=== PATIENT | male | born 1975 | race Caucasian/White ===

== ENCOUNTER 2021-02-22 15:38 | Outpatient (REF) | payer MEDICARE, MEDICAID, SELFPAY ==
--- NOTE | ~2021-02-22 | US_ITS ---
EXAMINATION: US SCROTUM CLINICAL INFORMATION: Left testicular pain. COMPARISON: Ultrasound scrotum 01/25/2006, report only. TECHNIQUE: A sonogram of the scrotum was performed assessing zamorano-scale appearance and color Doppler flow. Spectral Doppler analysis of the arterial and venous flow were performed in the testes bilaterally. FINDINGS: RIGHT: Right testicle measures 4.1 x 1.7 x 2.5 cm, volume 9.1 mL. There are small calcifications seen in the right testicle. Spectral Doppler analysis of the arterial and venous flow is normal in the right testis. Right epididymal head is enlarged.. There is a 1.9 x 0.7 x 0.6 cm right epididymal head cyst. No right hydrocele or varicocele is seen. Right epididymal Doppler flow is normal. There is a small simple cyst in the anterior scrotum superior to the right testicle that measures 3 x 2 x 3 mm. LEFT: Left testicle measures 3.7 x 1.5 x 2.3 cm, volume 6.7 mL. There are small calcifications in the left testicle. Spectral Doppler analysis of the arterial and venous flow is normal in the left testis. Left epididymal head is normal in size. No left hydrocele is seen. Left epididymal Doppler flow is normal. There is a left varicocele. US/US scrotum IMPRESSION: Bilateral testicular microlithiasis. This is described in 2006 report. No focal testicular lesion seen. 1.9 x 0.7 x 0.6 cm right epididymal head cyst. Small left varicocele.
== END 2021-02-22 15:39 | disposition home or self-care (01) ==
LOC: HO.US 15:38
PROVIDERS: PCP Nurse Practitioner Family; Visit Provider Nurse Practitioner Family
DX: N50.812 Left testicular pain (principal)
CPT/HCPCS: 76870

== ENCOUNTER → 2021-03-01 10:08 | Outpatient (BNVA) | payer MEDICARE, MEDICAID, SELFPAY | PROVIDERS: PCP Nurse Practitioner Family; Visit Provider Urology | DX: I86.1 Scrotal varices (principal); N47.1 Phimosis | CPT/HCPCS: 99202 ==

== ENCOUNTER 2021-04-08 09:44 | Day surgery (SDC) | payer MEDICARE, MEDICAID, SELFPAY ==
[2021-04-01 15:18] VITALS: BMI 30.7
--- NOTE | 2021-04-05 09:44 | HO.ANESPROP2 ---
Documented by User: Estela Velarde NP 04/05/21 09:52 HPI - Anesthesia Eval Consult details Narrative: 45yo M for Left Variocelectomy, Circumcision Suboxone 8mg TID (24mg total daily). Plan to wean for surgery: 16mg 04/05, 8mg 04/06, 8mg 04/07 PMFSH Active Problems Active Problems: All Active Problems (Updated 03/01/21 @ 17:46 by Miguel Hernandez MD) Varicocele (Acute) Phimosis (Acute) Past Medical History Medical History History of intravenous drug abuse Smoker Family History Family History Father Medical history unknown Mother Medical history unknown Surgical History Surgical History Hx of foot surgery Hx of hernia repair Social History Social History Are you a primary direct care supervisor to a significant other at home: No Do you presently have visiting nurse or other home services: No Alcohol intake: current Alcohol intake frequency: a few times a month Patient Tobacco Use Status: Current everyday Tobacco user Tobacco use type: Cigarette Cigarette Packs Per Day: 1 Cigarettes Per Day: 20.0 Years Smoked: 25 Smoked in Last 30 Days: Yes Patient Interested in Nicotine Replacement: No Use of substances other than those prescribed or required for medical reasons: No Substance Use Type Other:: On Suboxone Have you been hit, kicked, punched, or otherwise hurt by someone within the past year? If so, by whom?: No Are you DNR?: No Advance Directives: No Advance Directives Information Provided: No Advance Directives on File: No Recently lost weight without trying: No Eating poorly because of decreased appetite: No Nutrition Risks: No Nutritional Risk Meds Allergies Allergy/AdvReac Type Severity Reaction Status Date / Time No Known Allergies Allergy Verified 04/01/21 14:43 [No Known Allergies*] Home Medications Medication Instructions Recorded Confirmed Last Taken Type buprenorphine 8 mg-naloxone 2 mg 30 mg SUBLINGUAL DAILY 12/27/20 04/01/21 Unknown History sublingual film bupropion HCl 300 mg 24 hr tablet, 300 mg PO QAM 12/27/20 04/01/21 Unknown History extended release lorazepam 1 mg tablet 1 mg PO BID 12/27/20 04/01/21 Unknown History trazodone 100 mg tablet 150 mg PO BEDTIME 12/27/20 04/01/21 Unknown History Exam Exam Date and Time: April 05, 2021 09 Height,Weight and Vital Signs: Height 5 ft 8 in Weight 91.626 kg Assessment and Plan Assessment Anesthesia Assessment: Chart Reviewed Documented by User: Alannah Back MD 04/08/21 10:43 [facility] Past Medical History Medical History History of intravenous drug abuse Smoker Family History Family History Father Medical history unknown Mother Medical history unknown Surgical History Surgical History Hx of foot surgery Hx of hernia repair History of Problems with Anesthesia: No Social History Social History Are you a primary direct care supervisor to a significant other at home: No Do you presently have visiting nurse or other home services: No Alcohol intake: current Alcohol intake frequency: a few times a month Patient Tobacco Use Status: Current everyday Tobacco user Tobacco use type: Cigarette Cigarette Packs Per Day: 1 Cigarettes Per Day: 20.0 Years Smoked: 25 Smoked in Last 30 Days: Yes Patient Interested in Nicotine Replacement: No Use of substances other than those prescribed or required for medical reasons: No Substance Use Type Other:: On Suboxone Have you been hit, kicked, punched, or otherwise hurt by someone within the past year? If so, by whom?: No Are you DNR?: No Advance Directives: No Advance Directives Information Provided: No Advance Directives on File: No Recently lost weight without trying: No Eating poorly because of decreased appetite: No Nutrition Risks: No Nutritional Risk Meds Allergies Allergy/AdvReac Type Severity Reaction Status Date / Time No Known Allergies Allergy Verified 04/01/21 14:43 [No Known Allergies*] Home Medications Medication Instructions Recorded Confirmed Last Taken Type buprenorphine 8 mg-naloxone 2 mg 30 mg SUBLINGUAL DAILY 12/27/20 04/01/21 Unknown History sublingual film bupropion HCl 300 mg 24 hr tablet, 300 mg PO QAM 12/27/20 04/01/21 Unknown History extended release lorazepam 1 mg tablet 1 mg PO BID 12/27/20 04/01/21 Unknown History trazodone 100 mg tablet 150 mg PO BEDTIME 12/27/20 04/01/21 Unknown History Exam Airway Mallampati Class: II TM Dist: >3cm Neck ROM: Full Loose/Missing/Broken Teeth: No Heart: RRR Lungs: CTA Assessment and Plan Assessment Anesthesia Assessment: Anesthesia Plan Discussed Final Anesthetic Review History of Problems with Anesthesia: No NPO: Yes ASA Class: II Final Preanesthetic Review: Meds/Allgs Chart Reviewed, Consent Obtained/Reviewed and Anes Risks/Benef Reviewed Patient Risk: Low Procedure Risk: Low Anesthetic Plan Anesthetic Plan: GA Disposition: Standard PACU
[2021-04-08] VITALS (9 sets, daily range): BP systolic 110–133; BP diastolic 45–84; PULSE 57–84; RESP 16–18; TEMP 36.4; O2SAT 95–100
[2021-04-08] MEDS: Lactated Ringers 1,000 ML 100 ML IVCONT (10:35)
--- NOTE | 2021-04-08 10:55 | MHC.SHP ---
Pre-Procedural Eval Section A Date of Service: 04/08/21 Section B Chief Complaint: phimosis Details of Present Illness: Phimosis and left varicocele Relevant Social History: None Present Medications: None Medical History: No relevant PMH History of Previous Operations: No relevant previous surgery Allergies: Allergies Allergy/AdvReac Type Severity Reaction Status Date / Time No Known Allergies Allergy Verified 04/01/21 14:43 [No Known Allergies*] Review of Systems Sugical H&P ROS: Negative: Constitution, Cardiovascular, Respiratory, Neurological, Psychiatric, Hem-Onc, Allergic/Immunologic, Gastrointestinal, Genitourinary, Musculoskeletal, Integumentary, Endocrine and Eyes/Ears/Nose/Throat Exam Surgical H&P Exam: Normal: HEENT, Normal: Heart, Normal: Lungs, Normal: Extremities, Normal: Abdomen, Normal: Skin and Normal: Neurological Plan Diagnosis/Plan: Unchanged (Microscopic left varicocelectomy and circumcision for combination varicocele and phimosis) I have reviewed the history and physical and performed a pertinent physical examination on my patient. No changes have occurred unless specified.
--- NOTE | 2021-04-08 13:24 | W.PM.OPN ---
Operative Note Operative Note Date of Service: 04/08/21 Narrative: PreOperative Diagnosis: 1. Left varicocele 2 phimosis non responsive to conservative therapy Post Operative Diagnosis: Same Procedure: 1. Microscopic left varicocelectomy 2. Circumcision Surgeon: Dr Miguel Hernandez Anesthesia: General Indications for procedure: This is a 45-year-old male. Persistent pain on left side groin following hernia repair with grade 3 varicocele. Discussion regarding varicocelectomy and potential for pain management. He understands that it may not be effective. In addition he has trouble with foreskin withdrawal. Failed to respond to conservative therapy with betamethasone. The is seeking circumcision. Is aware of the risks and benefits including but no limited to infection, bleeding, need for revision surgery. Procedure: After informed consent was verified the patient was brought to the operating room and placed in a supine position. Anesthesia was administered per protocol. The patient was prepped and draped in sterile fashion. Safety pause time-out was performed. IV antibiotics have been given. Left subinguinal incision was marked. Local anesthetic was injected subcutaneously over the marked incision. Using a 15 blade incision was made and taken down through the sub dermis. Using Bovie cautery the tissue was isolated and divided down to the level of the testicular cord. The cord was dissected free of attachments and elevated through the incision using a [place] clamp. A tongue depressor inside a glove was placed under the cord for elevation. Operative microscope was brought in place. The muscle fibers overlying the cord were divided longitudinally. Cord was dissected. The vas deferens was seen in the posterior position and isolated along with its vascular packet using vessel loops. There were 2 prominent superficial veins in the anterior aspect that were dissected and tied using 4-0 silk ties before division. Working our way through the cord fat we came across the large dilated tortuous vein. This appeared to be incompetent secondary to valvular issues consistent with a grade 3 varicocele. This was dissected and tied using 3-0 Vicryl free ties. Stick ties were also placed in order to make sure there was adequate hemostatic control in the area divided with a segment sent for pathology. Another area of significant vein return was seen on the superficial lateral aspect. This too was divided in dissected. Throughout this dissection the Doppler probe was used to ensure there was no arterial flow in any of the structures that were being divided. After these nest of veins had been divided and controlled the incision was irrigated. The cord was allowed to retract into the incision. The overlying fascia was reapproximated with interrupted 3-0 Vicryl. Skin was closed with a running 4-0 Monocryl. Dermabond glue was then used for skin closure. Attention was directed to the phimosis on the penis. A proximal incision was marked with a marking pen just proximal to the sulcus. Skin was incised using a 15 blade. Foreskin was retracted and a distal incision made approximately 5 mm from the coronal sulcus in the 12 o'clock position. We ran this under the 6 o'clock position and sped the frenula by making this a straight curved incision rather than following sulcus on its course. When this was completed the sleeve of tissue was removed using a standard sleeve technique with hemostatic control. Sutures were then placed at the 12 and 6 o'clock position within interrupted 3-0 chromic to act as stays. Intervening tissue was then closed with a running 4-0 Monocryl from the 12 o'clock to 6 o'clock position. This was repeated on both sides. Suture was tied for control of the 12 o'clock position of brought around to the 6 o'clock position. The 2 free ends were then tied the 6 o'clock position in both stay sutures were cut. The penis was cleaned with a wet and a dry. Dressing was placed consisting of Xeroform gauze followed by Uzma and Coban for control. He tolerated the procedures well was extubated in operating room and transferred in stable condition to the recovery area. Pathology: Foreskin and varicose plexus Drains: None
[2021-04-08] MEDS: oxyCODONE HCl Immed Release 5 MG TABLET 10 MG PO (14:06)
[2021-04-08] MEDS: fentaNYL citrate/PF 100 MCG/2 ML VIAL 50 MCG IVPUSH ×2 (14:07→14:13)
== END 2021-04-08 14:51 | disposition home or self-care (01) ==
PROVIDERS: PCP Nurse Practitioner Family; Visit Provider Urology
PROC: (CPT 54161; principal; 2021-04-08 11:20)
DX: N47.1 Phimosis (principal); I86.1 Scrotal varices; N50.819 Testicular pain, unspecified; R10.30 Lower abdominal pain, unspecified; F11.20 Opioid dependence, uncomplicated; F17.210 Nicotine dependence, cigarettes, uncomplicated
CPT/HCPCS: 54161; 55530; 88304; 88313; J0131; J0690; J1100; J1170; J2250; J2405; J3010

== ENCOUNTER → 2021-04-24 15:47 | Outpatient (BNVA) | payer MEDICARE, MEDICAID, SELFPAY | PROVIDERS: PCP Nurse Practitioner Family; Visit Provider Urology | DX: I86.1 Scrotal varices (principal); N47.1 Phimosis | CPT/HCPCS: 99212 ==

== ENCOUNTER → 2021-05-14 10:46 | Outpatient (BNVA) | payer MEDICARE, MEDICAID, SELFPAY | PROVIDERS: PCP Nurse Practitioner Family; Visit Provider Urology | DX: I86.1 Scrotal varices (principal); N47.1 Phimosis | CPT/HCPCS: 99212 ==

== ENCOUNTER → 2021-08-27 15:25 | Outpatient (BNVA) | payer MEDICARE, MEDICAID, SELFPAY | PROVIDERS: PCP Nurse Practitioner Family; Visit Provider Urology | DX: N47.8 Other disorders of prepuce (principal); Z98.890 Other specified postprocedural states | CPT/HCPCS: 99212 ==

== ENCOUNTER → 2021-10-11 15:07 | Outpatient (BNVA) | payer MEDICARE, MEDICAID, SELFPAY | PROVIDERS: PCP Nurse Practitioner Family; Visit Provider Urology | DX: N47.8 Other disorders of prepuce (principal) | CPT/HCPCS: Q3014 ==

== ENCOUNTER 2021-11-08 12:32 | Emergency (ER) | payer OTHER, MEDICARE, MEDICAID, SELFPAY ==
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
[2021-11-08 13:09] VITALS: BP 129/72; PULSE 87; RESP 18; TEMP 37.1; O2SAT 97; BMI 29.5
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
[2021-11-08] MEDS: Acetaminophen 325 MG TABLET 975 MG PO (14:06)
[2021-11-08] MEDS: Ketorolac Tromethamine 30 MG/ML VIAL IM (14:06)
[2021-11-08 15:21] VITALS: RESP 17
== END 2021-11-08 15:22 | disposition left against medical advice (07) ==
PROVIDERS: Emergency Provider Student in an Organized Health Care Education/Training Program; PCP Nurse Practitioner Family
DX: Z04.1 Encounter for examination and observation following transport accident (principal); M54.2 Cervicalgia; R51.9 Headache, unspecified; M54.6 Pain in thoracic spine; M54.50 Low back pain, unspecified
CPT/HCPCS: 70450; 72125; 72128; 72131; 96372; 99282; 99283; 99284; J1885